=== PATIENT | female | born 1995 | race Caucasian/White ===

== ENCOUNTER 2017-03-10 06:19 | Emergency (ER) | payer SELFPAY ==
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
== END 2017-03-10 07:26 | disposition home or self-care (01) ==
LOC: ER 06:19
DX: S63.501A Unspecified sprain of right wrist, initial encounter (principal); F17.210 Nicotine dependence, cigarettes, uncomplicated; Z90.89 Acquired absence of other organs; Z88.1 Allergy status to other antibiotic agents; Y08.89XA Assault by other specified means, initial encounter